=== PATIENT | female | born 1975 | race Caucasian/White ===

== ENCOUNTER 2018-01-03 23:22 | Emergency (ER) | payer OTHER, SELFPAY ==
[2018-01-04 00:10] LABS: #Eosinphils 0.1 thou/uL (0.0-0.7); #Lymphocytes 1.5 thou/uL (1.20-3.40); #Monocytes 0.4 thou/uL (0.11-0.59); #Neutrophils 5.5 thou/uL (1.40-6.50); %Basophils 0.2 % (0.0-1.0); %Eosinophils 0.7 % (0.0-10.0); %Lymphocytes 20.1 % (21.0-51.0); %Monocytes 5.8 % (0.0-10.0); %Neutrophils 73.1 % (42.0-75.0); Hemoglobin 12.9 g/dL (12.0-16.0); Mean Corpuscular HGB CONC 34.3 g/dL (32.0-36.0); Mean Corpuscular Volume 87.6 fl (81.0-99.0); Mean Platelet Volume 6.1 fL (7.4-10.4); Platelet Count 270 thou/uL (130-400); RBC Distribution Width 12.3 % (11.5-14.5); White Blood Cell (WBC) Count 7.5 thou/uL (4.8-10.8)
[2018-01-04 00:10] LABS: Bilirubin Negative (Negative); Blood, Urine Negative (Negative); Clarity CLEAR (Clear); Glucose, Urine (Dipstick) Negative (Negative); Leukocyte Negative (Negative); Nitrite Negative (Negative); Protein, Urine (Dipstick) Negative (Neg-Trace); Specific Gravity, Urine 1.005 (1.002-1.036); Urobilinogen 0.2 mg/dL (0.2-1.0); pH, Urine 6.5 (5.0-9.0)
[2018-01-04 00:14] LABS: BHCG - Serum Negative (NEGATIVE); Pregs Control Background? CLEAR/WHITE (CLR/WHITE); Pregs Control Bar Appear? YES (CONTROL BAR)
[2018-01-04 00:32] LABS: ALT (SGPT) 13 U/L (8-55); AST (SGOT) 16 U/L (5-34); Albumin 4.1 g/dL (3.5-5.0); Alkaline Phosphatase 71 U/L (40-150); Anion Gap 14 mmol/L (10-20); BUN (Urea Nitrogen) 9 mg/dL (7.0-18.7); Bilirubin, Total 0.3 mg/dL (0.2-1.2); CK (CPK) 97 U/L (29-168); Calc. Creatinine Clearance 0 mL/min (70-130); Calcium 8.9 mg/dL (7.8-10.44); Carbon Dioxide 21 mmol/L (22-29); Chloride 110 mmol/L (98-107); Estimated GFR-MDRD 72; Globulin 2.5 g/dL (2.4-3.5); Glucose 99 mg/dL (70-105); Potassium 3.8 mmol/L (3.5-5.1); Protein, Total 6.6 g/dL (6.0-8.3); Sodium 141 mmol/L (136-145)
[2018-01-04] MEDS ORDERED: Acetaminophen 500 MG TAB ONE (00:45)
--- NOTE | 2018-01-04 08:53 | CT ---
PRELIMINARY REPORT/[facility]/EMERGENCY AFTER HOURS PROCEDURE: EXAM: CT Abdomen and Pelvis Without Intravenous Contrast EXAM DATE/TIME: Exam ordered 01/04/2018 12:24 AM CLINICAL HISTORY: 42 years old, female; Pain; Abdominal pain; Flank; Lower; Patient HX: F40 presents to ed for multiple complaints. Pt was transported by ems for rt flank pain that began a week ago and has been constant. Pt denies HX of trauma or strain. Pt reports today she fell and vomited over because the pain was so bad. Pt reports that the pain has been traveling throughout her abdomen, and now she has pain in hear ear/head. Pt denies dysuria or blood in urine, fever or chills. Pt reports sweats associ ated with pain. TECHNIQUE: Axial computed tomography images of the abdomen and pelvis without intravenous contrast. Coronal refo rmatted images were created and reviewed. COMPARISON: No relevant prior studies available. FINDINGS: Lung bases: The visualized portions of the lung bases are normal. ABDOMEN: Liver: The liver is within normal limits for this noncontrast study. Gallbladder and bile ducts: The gallbladder is normal. There is no evidence of biliary ductal dilatio n. No calcified stones. Pancreas: The pancreas appears normal. No ductal dilation. Spleen: The spleen is normal. Adrenals: The adrenal glands are normal. Kidneys and ureters: The kidneys appear normal. No obstructing stones. No hydronephrosis. Stomach and bowel: There is marked thickening of the duodenum and proximal jejunum compatible with en teritis in the appropriate clinical setting. The stomach is normal. The colon is normal. No obstructi on. PELVIS: Appendix: A normal appendix is identified. Bladder: The bladder is normal. No stones. Reproductive: The uterus is normal. ABDOMEN and PELVIS: Intraperitoneal space: Normal. No free air. No significant fluid collection. Bones/joints: No acute fracture. No dislocation. Soft tissues: Normal. Vasculature: Normal. No abdominal aortic aneurysm. Lymph nodes: Normal. No enlarged lymph nodes. IMPRESSION: There is marked thickening of the duodenum and proximal jejunum compatible with enteritis in the appr opriate clinical setting. Thank you for allowing us to participate in the care of your patient. Dictated and Authenticated by: Melecio Tucker MD 01/04/2018 12:51 AM Central Time ([place] & [place]) FINAL REPORT CT OF THE ABDOMEN AND PELVIS: DATE: 01/04/18. COMPARISON: None. HISTORY: Right-sided flank pain. FINDINGS: I agree with the preliminary [facility] report dictated by Dr. Tucker. The lack of contrast limits assessment of the viscera, bowel vascular structures, and for lymphadenop athy. The visualized lung bases are unremarkable with no free intraperitoneal air seen. Liver, spleen, and gallbladder appear grossly unremarkable. Pancreas, adrenal glands, and kidneys ap pear grossly unremarkable as well. Small volume nonspecific free fluid is seen in the pelvis cul-de-sac. Limited assessment of the bowel demonstrates no evidence for obstruction. Appendix is visualized and appears unremarkable. There is thickening of the duodenum and proximal jejunum. No acute osseous abnormality. IMPRESSION: Nonspecific wall thickening of the duodenum and jejunum. This may reflect enteritis in the proper cl inical setting. Clinical correlation is essentially. POS: [facility]
== END 2018-01-04 01:43 | disposition home or self-care (01) ==
LOC: ERS 23:22
DX: R10.11 Right upper quadrant pain (principal); F17.210 Nicotine dependence, cigarettes, uncomplicated
CPT/HCPCS: 36415; 74176; 80053; 81003; 82550; 84703; 85025; 87086; 96360

== ENCOUNTER 2023-12-20 20:53 | Emergency (ER) | payer BC, SELFPAY ==
[2023-12-20 22:49] LABS: #Basophils Less than 0.03 10x3/uL (0.0-0.2); %Basophils 0.3 % (0.0-1.0); %Eosinophils 0.6 % (0.0-10.0); %Lymphocytes 19.8 % (21.0-51.0); %Monocytes 4.8 % (0.0-10.0); %Neutrophils 74.2 % (42.0-75.0); Hematocrit 31.7 % (36.0-47.0); Hemoglobin 9.6 g/dL (12.0-16.0); Mean Corpuscular HGB CONC 30.3 g/dL (32.0-36.0); Mean Corpuscular Hemoglobin 23.1 pg (27.0-31.0); Mean Corpuscular Volume 76.4 fL (78.0-98.0); Mean Platelet Volume 8.5 fL (7.4-10.4); Platelet Count 321 10x3/uL (130-400); RBC Distribution Width 15.2 % (11.5-14.5); Red Blood Cell (RBC) Count 4.15 mill/uL (4.20-5.40)
[2023-12-20 23:03] LABS: ALT (SGPT) 15 U/L (8-55); AST (SGOT) 15 U/L (5-34); Acetaminophen 15 mcg/mL (10.0-30.0); Albumin 3.6 g/dL (3.5-5.0); Alcohol Less than 10.0 mg/dL (Less than 10); Alkaline Phosphatase 63 U/L (40-110); Anion Gap 12 mmol/L (10-20); BUN (Urea Nitrogen) 9 mg/dL (7.0-18.7); Bilirubin, Total 0.3 mg/dL (0.2-1.2); Calc. Creatinine Clearance 0 mL/min (70-130); Calcium 8.7 mg/dL (7.8-10.44); Carbon Dioxide 22 mmol/L (22-29); Chloride 111 mmol/L (98-107); Estimated GFR 86; Globulin 2.7 g/dL (2.4-3.5); Glucose 124 mg/dL (70-105); Potassium 3.2 mmol/L (3.5-5.1); Protein, Total 6.3 g/dL (6.0-8.3); Salicylate Less than 8.0 mg/dL (15.0-30.0); Sodium 142 mmol/L (136-145)
== END 2023-12-20 23:21 | disposition home or self-care (01) ==
LOC: ERS 20:53
DX: T67.5XXA Heat exhaustion, unspecified, initial encounter (principal); D64.9 Anemia, unspecified; E87.6 Hypokalemia; F17.210 Nicotine dependence, cigarettes, uncomplicated; X32.XXXA Exposure to sunlight, initial encounter; Y93.89 Activity, other specified; Y92.69 Other specified industrial and construction area as the place of occurrence of the external cause; Z86.73 Personal history of transient ischemic attack (TIA), and cerebral infarction without residual deficits
CPT/HCPCS: 36415; 70450; 71045; 80053; 80307; 83605; 84443; 85025; 93005